=== PATIENT | female | born 1980 | race Caucasian/White ===

== ENCOUNTER → 2016-07-30 | Outpatient (CLI) | payer OTHER ==
[2016-07-30 15:21] LABS: FREE T4 0.91 ng/dL (0.76-1.46)
[2016-07-31 00:09] LABS: ESTRADIOL LEVEL <5.0 pg/mL (.)
== END | disposition home or self-care (01) ==
LOC: LAB 14:23
PROVIDERS: ATTEND Nurse Practitioner Women's Health
DX: Z01.419 Encounter for gynecological examination (general) (routine) without abnormal findings (principal); E07.9 Disorder of thyroid, unspecified
CPT/HCPCS: 36415; 82670; 82679; 84402; 84403; 84439; 84481

== ENCOUNTER → 2016-09-03 | Outpatient (CLI) | payer OTHER ==
[2016-09-03 18:12] LABS: ESTRADIOL LEVEL 215.4 pg/mL (.); LUTEINIZING HORMONE 3.4 mIU/mL (.); PROGESTERONE 0.2 ng/mL (.)
== END | disposition home or self-care (01) ==
LOC: LAB 10:25
PROVIDERS: ATTEND Nurse Practitioner Women's Health
DX: N95.9 Unspecified menopausal and perimenopausal disorder (principal)
CPT/HCPCS: 36415; 82670; 83001; 83002; 84144

== ENCOUNTER → 2018-02-21 | Outpatient (CLI) | payer BC, OTHER ==
[2018-02-21 10:17] LABS: ALBUMIN 3.8 g/dL (3.4-5.0); ALBUMIN/GLOBULIN RATIO 1.1 (1.0-1.7); CALCIUM 8.6 mg/dL (8.5-10.1); CREATININE 0.7 mg/dL (0.6-1.0); GFR 93.2; POTASSIUM 4.4 mmol/L (3.5-5.1); TOTAL BILIRUBIN 0.5 mg/dL (0.2-1.0); TOTAL PROTEIN 7.3 g/dL (6.4-8.2)
[2018-02-21 10:21] LABS: CHOLESTEROL/HDL RATIO 2.7
[2018-02-21 10:25] LABS: FREE T4 0.8 ng/dL (0.76-1.46); THYROID STIM HORMONE (TSH) 4.483 uIU/mL (0.358-3.74)
[2018-02-21 20:13] LABS: ESTRADIOL LEVEL 183.3 pg/mL (.); FSH 24.6 mIU/mL (.); LUTEINIZING HORMONE 20.3 mIU/mL (.)
[2018-02-25 14:14] LABS: TESTOSTERONE TOTAL 15 ng/dL (8-48)
== END | disposition home or self-care (01) ==
LOC: LAB 08:33
PROVIDERS: ATTEND Nurse Practitioner
DX: E78.5 Hyperlipidemia, unspecified (principal); N95.9 Unspecified menopausal and perimenopausal disorder; E07.9 Disorder of thyroid, unspecified
CPT/HCPCS: 36415; 80053; 80061; 82670; 83001; 83002; 84402; 84403; 84439; 84443